=== PATIENT | male | born 1960 | race Two or more races ===

== ENCOUNTER 2019-09-11 08:07 | Outpatient (CLI) | payer OTHER ==
[2019-09-11 08:40] LABS: ALANINE AMINOTRANSFERASE 41 U/L (12-78); ALBUMIN 3.5 g/dL (3.4-5.0); ANION GAP 6 mmol/L (5-15); CALCIUM 8.7 mg/dL (8.5-10.1); CHLORIDE 107 mmol/L (98-107); CREATININE 0.96 mg/dL (0.7-1.3)
[2019-09-11 08:45] LABS: ALKALINE PHOSPHATASE 95 U/L (45-117); BILIRUBIN,TOTAL 0.7 mg/dL (0.2-1.0); CHOL/HDL RATIO 5.1; CHOLESTEROL, TOTAL 229 mg/dL (140-239); HDL CHOL % 20 % (26-37); HDL CHOLESTEROL (DIRECT) 45 mg/dL (40-60); LDL CHOLESTEROL,CALCULATED 127 mg/dL (54-169); LDL/HDL RATIO 2.8 (0.5-3.0); PSA SCREEN 1.39 ng/mL (0.00-4.00); TRIGLYCERIDES 287 mg/dL (50-200); VLDL CHOLESTEROL 57 mg/dL (0-25)
== END 2019-09-11 23:59 | disposition home or self-care (01) ==
LOC: RAD 08:07
PROVIDERS: ATTEND Family Medicine
DX: Z12.5 Encounter for screening for malignant neoplasm of prostate (principal); Z13.1 Encounter for screening for diabetes mellitus; Z13.220 Encounter for screening for lipoid disorders; M17.11 Unilateral primary osteoarthritis, right knee
CPT/HCPCS: 36415; 73564; 80053; 80061; 82043; 83036; G0103